=== PATIENT | female | born 1935 | race Caucasian/White ===

== ENCOUNTER 2020-02-01 13:27 | Emergency (ER) | payer BC ==
[~2020-02-01] VITALS: Ht 167.6 cm; Wt 90.7 kg
--- NOTE | 2020-02-01 13:34 | NUR ---
[id number] FROM HOME, RFA/WRIST DEFORMITY S/P GLF TODAY. -KO, +DEFORMITY, TO ER BED 9, HOOKED TO BP CUFF AND POX, CHANGED TO HOSP GOWN, WARM BLANKET PROVIDED, PATIENT AAO x 3, BREATHING EVEN AND UNLABORED. AWAITING MD PARMAR.
--- NOTE | 2020-02-01 13:57 | NUR ---
DR DAMON AT BEDSIDE
--- NOTE | 2020-02-01 14:34 | NUR ---
DR HOLCOMB AT BEDSIDE
[2020-02-01] MEDS ORDERED: PRAV20TA4 PO (15:16)
[2020-02-01] MEDS ORDERED: AMLO2.5T4 PO (15:16)
[2020-02-01] MEDS ORDERED: edarbyclor PO (15:16)
[2020-02-01] MEDS ORDERED: HYDROCODONE/APAP 5/325MG TABLET PO ONE (15:30)
[2020-02-01] MEDS ORDERED: ONDANSETRON 4 MG TAB.RAPDIS SL ONE (15:30)
[2020-02-01] MEDS ORDERED: ONDANSETRON 4 MG TAB.RAPDIS ONE (15:36)
[2020-02-01] MEDS ORDERED: HYDROCODONE/APAP 5/325MG TABLET ONE (15:36)
--- NOTE | 2020-02-01 15:49 | NUR ---
CALIXTO MARX AT [facility] FOR APPLICATION OF R FOREARM VOLAR SPLINT
--- NOTE | 2020-02-01 16:05 | NUR ---
Patient discharged to home in stable condition. Written and verbal after care instructions given. Patient verbalizes understanding of instruction. Assisted to waiting room by asbestos abatement technician. Daughter waiting at waiting room.
[2020-02-01 16:07] VITALS: BP 129/74
== END 2020-02-01 16:08 | disposition home or self-care (01) ==
LOC: ER 13:35
DX: S52.571A Other intraarticular fracture of lower end of right radius, initial encounter for closed fracture (principal); S52.611A Displaced fracture of right ulna styloid process, initial encounter for closed fracture; I10 Essential (primary) hypertension; Z98.890 Other specified postprocedural states; Z79.899 Other long term (current) drug therapy; W18.39XA Other fall on same level, initial encounter; Y93.89 Activity, other specified; Y92.89 Other specified places as the place of occurrence of the external cause; Y99.8 Other external cause status
CPT/HCPCS: 29125; 73090; 73110; 73130; 99284; Q0162

== ENCOUNTER 2023-11-04 11:46 | Emergency (ER) | payer BC ==
[~2023-11-04] VITALS: Ht 170.2 cm; Wt 92.1 kg
[~2023-11-04 11:46] MED LIST: AMLO2.5T4 PO; PRAV20TA4 PO; edarbyclor PO
[2023-11-04 12:22] VITALS: BP 136/72; TEMP 98.7; O2SAT 100
== END 2023-11-04 12:22 | disposition home or self-care (01) ==
LOC: ER 11:51
DX: S80.11XD Contusion of right lower leg, subsequent encounter (principal); W54.0XXD Bitten by dog, subsequent encounter